=== PATIENT | male | born 1945 | race Caucasian/White ===

== ENCOUNTER 2020-04-24 13:42 | Outpatient (RCR) | payer MEDICARE, SELFPAY | END 2020-06-09 11:21 | disposition home or self-care (01) | LOC: HO.WCC 13:42 | PROVIDERS: PCP Family Medicine; Visit Provider Physician Assistant | DX: E11.621 Type 2 diabetes mellitus with foot ulcer (principal); E11.51 Type 2 diabetes mellitus with diabetic peripheral angiopathy without gangrene; L97.522 Non-pressure chronic ulcer of other part of left foot with fat layer exposed; I11.0 Hypertensive heart disease with heart failure; I50.9 Heart failure, unspecified; I25.10 Atherosclerotic heart disease of native coronary artery without angina pectoris; I25.2 Old myocardial infarction; F03.90 Unspecified dementia, unspecified severity, without behavioral disturbance, psychotic disturbance, mood disturbance, and anxiety; F17.210 Nicotine dependence, cigarettes, uncomplicated; Z89.429 Acquired absence of other toe(s), unspecified side | CPT/HCPCS: 11042; 97597 ==

== ENCOUNTER 2021-11-30 12:36 | Outpatient (RCR) | payer MEDICARE, SELFPAY ==
--- NOTE | ~2021-11-30 | XR_ITS ---
EXAMINATION: XR FOOT, LEFT CLINICAL INFORMATION: Nonhealing wound. Rule out osteomyelitis. COMPARISON: None TECHNIQUE: AP, lateral, and oblique views of the left foot. FINDINGS: There is amputation of the first and second toes. There is osteopenia and bone loss of the remaining phalanx of the third toe, either the distal or middle phalanx. There is overlying soft tissue swelling. Appearance is concerning for osteomyelitis. There is a round radiopaque density in the soft tissues measuring 1 to 2 mm. This may be related to the overlying surgical dressing. There is generalized osteopenia. There is pes planus. There are mild degenerative changes of the midfoot. There is a plantar calcaneal spur. There is soft tissue arterial calcification. XR/XR foot LT min 3V IMPRESSION: Question osteomyelitis of the third toe. Postop change from amputation of the first and second toes. Pes planus and degenerative changes of the midfoot. Plantar calcaneal spur.
[2021-12-02 10:56] LABS: MANUAL DIFF FLAG NO
[2021-12-02 11:45] LABS: Basophils Percent Auto 0.3 % (0-2); Eosinophils Absolute Auto 0.2 X10*3/uL (0.0-0.4); Eosinophils Percent Auto 3.5 % (0-4); Hemoglobin 10.1 g/dl (14.0-18.0); Imm Gran Pct Auto 1.7 % (0.0-0.4); Lymphocytes Absolute Auto 0.6 X10*3/uL (1.2-4.9); Lymphocytes Percent Auto 9.3 % (20-40); Mean Corpuscular HGB Conc 32.6 g/dl (31.0-36.0); Mean Corpuscular Hemoglobin 35.4 pg (27.0-33.0); Mean Corpuscular Volume 108.8 fL (80.0-98.0); Mean Platelet Volume 11.1 fL (9.4-12.4); Monocytes Absolute Auto 0.7 X10*3/uL (0.1-1.2); Monocytes Percent Auto 11.1 % (2-11); Neutrophils Absolute Auto 4.5 x10*3/uL (2.0-8.3); Neutrophils Percent Auto 74.1 % (45-73); Platelet Count 244 X10*3/uL (160-400); Red Blood Count 2.85 X10*6/uL (4.60-5.80); Red Cell Distribution Width 14.5 % (11.0-16.0); White Blood Count 6.1 X10*3/uL (4.8-10.8)
[2021-12-02 12:21] LABS: Anion Gap 17 (12-20); Blood Urea Nitrogen 30 mg/dL (9-16); C Reactive Protein 0.16 mg/dL (< or = 0.50); Calcium 9.2 mg/dL (8.4-10.2); Carbon Dioxide 24 mmol/L (22-29); Chloride 107 mmol/L (96-108); Estimated Average Glucose 117 mg/dL; Estimated Glomerular Filt Rate 46; Glucose Random 92 mg/dL (60-115); Hemoglobin A1c % 5.7 %; Potassium 5.6 mmol/L (3.3-5.1); Sodium 142 mmol/L (135-145)
[2021-12-02 12:48] LABS: Erythrocyte Sedimentation Rate 45 MM/HR (0-15)
== END 2022-03-24 14:14 | disposition home or self-care (01) ==
LOC: HO.WCC 12:36
PROVIDERS: PCP Family Medicine; Visit Provider Physician Assistant
DX: E11.621 Type 2 diabetes mellitus with foot ulcer (principal); E11.51 Type 2 diabetes mellitus with diabetic peripheral angiopathy without gangrene; L97.522 Non-pressure chronic ulcer of other part of left foot with fat layer exposed; L97.512 Non-pressure chronic ulcer of other part of right foot with fat layer exposed; E11.69 Type 2 diabetes mellitus with other specified complication; M86.472 Chronic osteomyelitis with draining sinus, left ankle and foot; E11.40 Type 2 diabetes mellitus with diabetic neuropathy, unspecified; M20.41 Other hammer toe(s) (acquired), right foot; F03.90 Unspecified dementia, unspecified severity, without behavioral disturbance, psychotic disturbance, mood disturbance, and anxiety; I11.0 Hypertensive heart disease with heart failure; I50.9 Heart failure, unspecified; I25.10 Atherosclerotic heart disease of native coronary artery without angina pectoris; I25.2 Old myocardial infarction; Z87.891 Personal history of nicotine dependence
CPT/HCPCS: 11042; 11044; 17250; 36415; 73630; 80048; 83036; 84134; 85025; 85652; 86140; 87070; 87071; 87073; 87077; 87186; 87205; 88304; 88305; 88311; 97597; 97602; 99212; 99213

== ENCOUNTER 2021-12-31 11:40 | Outpatient (REF) | payer MEDICARE, SELFPAY ==
--- NOTE | ~2021-12-31 | XR_ITS ---
EXAMINATION: XR FOOT, RIGHT CLINICAL INFORMATION: M86.9 - Osteomyelitis, unspecified COMPARISON: None TECHNIQUE: AP, lateral, and oblique views of the right foot. FINDINGS: The digits are superimposed on the lateral view. There is scalloped erosion involving the central and medial aspect distal phalangeal time first distal phalanx. There is loss of cortical white line also suggested at the medial neck proximal phalanx. Findings suggest osteomyelitis. There is no gas tracking in the soft tissues. The interphalangeal joint is not well demonstrated which could be related to positioning and the diffuse hammertoe deformities. Subluxation cannot be excluded. Remainder of the bony structures show no fracture or dislocation or destructive process. There are degenerative changes PIP and DIP joints. Posterior and plantar calcaneal spurs. PSA to call report. XR/XR foot RT min 3V IMPRESSION: -Suspect osteomyelitis involving medial neck first proximal phalanx and distal phalangeal tuft first distal phalanx. No gas tracking in soft tissues. -Hammertoe deformities. Degenerative changes PIP and DIP joints. Question subluxation first distal phalanx versus positional/, toe.
== END 2021-12-31 11:41 | disposition home or self-care (01) ==
LOC: HO.XRAY 11:40
PROVIDERS: PCP Family Medicine; Visit Provider Internal Medicine
DX: M86.9 Osteomyelitis, unspecified (principal)
CPT/HCPCS: 73630; 99202

== ENCOUNTER 2022-01-18 | Outpatient (REF) | payer MEDICARE, SELFPAY | END 2022-01-18 00:01 | disposition home or self-care (01) | LOC: HO.MDS | PROVIDERS: Visit Provider Internal Medicine | DX: Z45.2 Encounter for adjustment and management of vascular access device (principal); M86.9 Osteomyelitis, unspecified | CPT/HCPCS: 96365; J1335 ==

== ENCOUNTER → 2022-01-18 08:17 | Day surgery (SDC) | payer MEDICARE, SELFPAY ==
--- NOTE | 2022-01-18 12:46 | P.PICC_ITS ---
PICC Line Insertion NPICC Diagnosis: Osteomyelitis Indication: nursing home antibiotics needed Pertinent Labs: reviewed Technique: Following informed consent including risks, benefits and alternatives and using sterile technique including cap and mask, sterile gown, glove and drape, the right arm was prepped and draped in the usual sterile fashion of full barrier technique with CHG. Following completion of [place] Protocol the skin and soft tissues were anesthetized with 1% Lidocaine plain. Using ultrasound guidance, right basilic and right brachial vein access was attempted by [place]. Right brachial vein access was obtained by Barak Neri RN. Over an 0.018 wire through peel-away sheath, a 4FR single lumen PASV PICC line was positioned. Catheter length is 40 CM internal length, 0 CM external length, for a total trimmed length of 40 CM. The procedure was performed in S272. Tip verification was performed by Coco Domínguez with Sherlock 3CG. Tip located in SVC. Ultrasound was used to document vein patency and for needle entry. A formal ultrasound picture and cardiac rhythm strip was recorded. Vascular Automatic Profile Shaper Operator has released the line for use and it is currently dressed with a StatLock, Tegaderm, and CHG disc. Verification has been performed for blood return and line patency. Arm Circumference: 31 CM Equipment: [place] Power PICC Solo Catheter Type: 4 FR single lumen PASV PICC Lot #: [id number]
== END ==
PROVIDERS: PCP Family Medicine; Visit Provider Radiology Diagnostic Radiology
DX: M86.9 Osteomyelitis, unspecified (principal); I99.9 Unspecified disorder of circulatory system; E11.40 Type 2 diabetes mellitus with diabetic neuropathy, unspecified; F03.90 Unspecified dementia, unspecified severity, without behavioral disturbance, psychotic disturbance, mood disturbance, and anxiety
CPT/HCPCS: 36558; C1751; J1335

== ENCOUNTER → 2022-01-26 10:55 | Outpatient (BNVA) | payer MEDICARE, SELFPAY | PROVIDERS: PCP Family Medicine; Visit Provider Internal Medicine | DX: I99.9 Unspecified disorder of circulatory system (principal); E11.69 Type 2 diabetes mellitus with other specified complication; E11.65 Type 2 diabetes mellitus with hyperglycemia; M86.9 Osteomyelitis, unspecified; B95.5 Unspecified streptococcus as the cause of diseases classified elsewhere | CPT/HCPCS: 99212 ==

== ENCOUNTER → 2022-02-28 10:49 | Outpatient (BNVA) | payer MEDICARE, SELFPAY | PROVIDERS: PCP Family Medicine; Visit Provider Internal Medicine | DX: M86.9 Osteomyelitis, unspecified (principal) | CPT/HCPCS: 99212 ==